=== PATIENT | female | born 1940 | race Caucasian/White ===

== ENCOUNTER 2019-01-11 13:39 | Inpatient (IN) | payer MEDICARE ==
[2019-01-11] MEDS ORDERED: Phytonadione 10 MG/ML AMP ONE (14:15)
[2019-01-11 14:29] LABS: #Lymphocytes 2.5 thou/uL (1.20-3.40); #Monocytes 0.7 thou/uL (0.11-0.59); #Neutrophils 9.5 thou/uL (1.40-6.50); %Basophils 0.3 % (0.0-1.0); %Eosinophils 0.3 % (0.0-10.0); %Lymphocytes 19.4 % (21.0-51.0); %Monocytes 5.8 % (0.0-10.0); %Neutrophils 74.3 % (42.0-75.0); Hemoglobin 11.4 g/dL (12.0-16.0); Mean Corpuscular HGB CONC 34.3 g/dL (32.0-36.0); Mean Corpuscular Hemoglobin 30.9 pg (27.0-31.0); Mean Corpuscular Volume 90.3 fL (78.0-98.0); Platelet Count 260 thou/uL (130-400); RBC Distribution Width 12.1 % (11.5-14.5); Red Blood Cell (RBC) Count 3.68 mill/uL (4.20-5.40); White Blood Cell (WBC) Count 12.8 thou/uL (4.8-10.8)
[2019-01-11] MEDS ORDERED: Diltiazem HCl 125 MG, Admixture Fee 1 EACH in Sodium Chloride 0.9% 100 ML IVPB SCH (14:30)
[2019-01-11 14:42] LABS: ALT (SGPT) 18 U/L (8-55); AST (SGOT) 20 U/L (5-34); Albumin 3.5 g/dL (3.4-4.8); Alkaline Phosphatase 84 U/L (40-110); Anion Gap 15 mmol/L (10-20); BUN (Urea Nitrogen) 8 mg/dL (9.8-20.1); Bilirubin, Total 0.5 mg/dL (0.2-1.2); Calc. Creatinine Clearance 0 mL/min (70-130); Calcium 8.4 mg/dL (7.8-10.44); Carbon Dioxide 22 mmol/L (23-31); Chloride 107 mmol/L (98-107); Estimated GFR-MDRD 78; Globulin 3.2 g/dL (2.4-3.5); Glucose 112 mg/dL (83-110); Potassium 3.2 mmol/L (3.5-5.1); Protein, Total 6.7 g/dL (6.0-8.3); Sodium 141 mmol/L (136-145)
[2019-01-11 15:06] LABS: PTT 169.6 SEC (22.9-36.1); Prothrombin Time Greater than 150.0 SEC (12.0-14.7)
[2019-01-11] MEDS ORDERED: Phytonadione 10 MG/ML AMP PO SCH (15:15)
[2019-01-11] MEDS ORDERED: Acetaminophen 325 MG TAB ONE (17:53)
[2019-01-11] MEDS ORDERED: Dextrose 50% Abboject 50 ML SYRINGE SLOW IVP PRN (19:53)
[2019-01-11] MEDS ORDERED: HumaLOG 300 UNITS/3 ML VIAL SC PRN ×2 (19:53)
[2019-01-11] MEDS ORDERED: hydrALAZINE 20 MG/ML VIAL SLOW IVP PRN (19:53)
[2019-01-11] MEDS ORDERED: Dextrose 5% in Water 1,000 ML IV PRN (19:53)
[2019-01-11] MEDS ORDERED: Ondansetron PF 4 MG/2 ML Vial IVP PRN (19:54)
[2019-01-11] MEDS ORDERED: Ondansetron ODT 4 MG TAB SL PRN (19:54)
[2019-01-11] MEDS ORDERED: Acetaminophen 325 MG TAB PO PRN (19:54)
[2019-01-11 20:12] VITALS: BMI 22.6
--- NOTE | 2019-01-11 21:57 | HP ---
PRIMARY CARE PHYSICIAN: Dr. Carlson. CHIEF COMPLAINT: "My left arm is swollen." HISTORY OF PRESENT ILLNESS: Ms. Buenrostro is a very pleasant 78-year-old female, who has a history of atrial fibrillation, diabetes, and hypertension. She says that about 3 days ago on Monday night, she noted some swelling in her left arm. She says it was also a bit painful as well. She says she denies hitting it against anything that she remembers and denies having any type of fall. The swelling got progressively worse and then on Monday, she made an appointment to see her primary care physician. He was out, but she saw another doctor in the office, who went through and did some lab work and found that her INR was extremely high. It was too high to detect, for this reason she sent her to the emergency room in [place]. There, they noticed that her PT was greater than 150. The INR was not able to be calculated and she was sent to our facility for evaluation. When she was here, further evaluation noted that her she was in atrial fibrillation with a heart rate of about 120 and she has also been placed on a Cardizem drip. Her daughter who is at the bedside says in the last few days she has had some type of viral illness where she had some diarrhea and very poor appetite. The patient herself denies taking any [id number] medications other than Imodium and a Tylenol. She does admit that she is supposed to go to the Coumadin to get her INR checked every month, but it has been about 6 weeks since she has had it checked. She does have a history of known atrial fibrillation, but she has not seen a transaction coordinator recently. She denies any chest pain or shortness of breath. No PND. No orthopnea. No feeling dizzy or are lightheaded. REVIEW OF SYSTEMS: CONSTITUTIONAL: No fevers or chills. No night sweats. No weight loss. HEENT: She denies any headaches. No dizziness, no visual changes. No sore throat. No rhinorrhea. NECK: No neck pain, no adenopathy. PULMONARY: No hemoptysis. No cough. No wheezing. CARDIOVASCULAR: As in history of present illness. GASTROINTESTINAL: No abdominal pain. No nausea. No vomiting. No change in bowels. GENITOURINARY: No urinary, frequency or hematuria. No hesitancy. MUSCULOSKELETAL: She noticed the swelling in the left upper extremity as well as some pain in the left forearm as well. No other complaints. SKIN AND INTEGUMENT: No skin changes. No rash. PSYCHIATRIC: No symptoms of anxiety or depression. NEUROLOGIC: No focal weakness or seizures. PAST MEDICAL HISTORY: Significant for chronic atrial fibrillation, diabetes mellitus type 2, hyperlipidemia, and hypertension. PAST SURGICAL HISTORY: Negative. ALLERGIES: SHE IS LACTOSE INTOLERANT. SOCIAL HISTORY: She is . She is a nonsmoker and nondrinker. She lives independently at home. She does not need any type of cane or a walker to get around. FAMILY HISTORY: Negative. CURRENT MEDICATIONS: Include: 1. Lipitor 40 mg, she takes two tablets at bedtime. 2. Metoprolol 100 mg twice daily. 3. Metformin 50 mg twice daily. 4. Coumadin 4 mg daily. 5. Losartan 50 mg daily. PHYSICAL EXAMINATION: GENERAL: She is alert and oriented. She appears to be in no acute distress. She is well developed and well nourished. VITAL SIGNS: Initially 164/135, heart rate 107, respiratory rate of 19, temperature is 97.9, and O2 saturation is 97% on room air. HEENT: Pupils are equal, round, and reactive. Extraocular muscles are intact. Her sclerae anicteric. Throat, there is no erythema, no exudates. NECK: No adenopathy, no bruits. LUNGS: Clear to auscultation. There is no wheezing, no rales, no rhonchi. CARDIOVASCULAR: She has a normal S1 and S2. There is no S3 or S4. However, her rate is irregular. ABDOMEN: Obese. It is mildly distended. Positive for bowel sounds. There is no rebound, no guarding. No organomegaly. EXTREMITIES: There is no clubbing, cyanosis, no edema except for the left upper extremity where she has tense edema in the forearm up to about the level of the elbow or olecranon. There is also some splotchy bruising and she does have palpable radial as well as ulnar pulses and she has normal sensation. She did have some difficulty with trying to form a fist with that hand. NEUROLOGIC: The exam is nonfocal. SKIN AND INTEGUMENT: She does have the bruising in the left upper extremity and some splotchy areas on both lower extremities, but otherwise negative. LABORATORY DATA: Lab and imaging, on her CBC, the white blood cell count is 12.8, hemoglobin 11.4, hematocrit is 33.2, and platelet count is 260. PT is 150. Sodium 140, potassium 3.2, chloride is 107, CO2 is 22, BUN of 8, creatinine is 0.72, glucose is 112. Troponin is less than 0.010. ASSESSMENT: Ms. Buenrostro is a pleasant 78-year-old female, who presented to the emergency room with left upper extremity swelling. She was found to have a supratherapeutic INR. She has been given 5 mg of vitamin K at [place] and then another 5 mg here. She will be admitted for severe coagulopathy as well as atrial fibrillation with rapid ventricular response. 1. With the coagulopathy, she has been given a total of 10 mg of vitamin K. We will repeat her INR in a.m. and closely monitor the left upper extremity for signs of potential compartment syndrome. However, at this point, she has intact sensation as well as intact circulation in that area. We will use some cool compresses to the area. 2. Atrial fibrillation with rapid ventricular response. Continue the IV Cardizem drip and since she has not seen a transaction coordinator recently, we will consult Cardiology and also get an echocardiogram as there is none visible in our electronic system. 3. Diabetes mellitus. We will continue her home medications as well as a sliding scale and hypertension. Again, continue home medications and offer medications as needed for elevated pressure. Job ID: [id number]
[2019-01-12 05:51] LABS: #Lymphocytes 2.5 thou/uL (1.20-3.40); #Monocytes 0.9 thou/uL (0.11-0.59); #Neutrophils 9.8 thou/uL (1.40-6.50); %Basophils 0.3 % (0.0-1.0); %Eosinophils 0.2 % (0.0-10.0); %Monocytes 6.8 % (0.0-10.0); %Neutrophils 73.6 % (42.0-75.0); Hemoglobin 10.6 g/dL (12.0-16.0); Mean Corpuscular Hemoglobin 30.9 pg (27.0-31.0); Mean Corpuscular Volume 90.9 fL (78.0-98.0); Mean Platelet Volume 8.4 fL (7.4-10.4); Platelet Count 251 thou/uL (130-400); RBC Distribution Width 12.3 % (11.5-14.5); Red Blood Cell (RBC) Count 3.42 mill/uL (4.20-5.40); White Blood Cell (WBC) Count 13.3 thou/uL (4.8-10.8)
[2019-01-12] MEDS: Acetaminophen 325 MG TAB PO PRN ×2 (05:51→12:58)
[2019-01-12 05:55] LABS: INR-International Normal Ratio 1.9
[2019-01-12 06:20] LABS: Anion Gap 14 mmol/L (10-20); BUN (Urea Nitrogen) 6 mg/dL (9.8-20.1); Calc. Creatinine Clearance 67 mL/min (70-130); Carbon Dioxide 22 mmol/L (23-31); Chloride 108 mmol/L (98-107); Estimated GFR-MDRD Greater than 90; Glucose 106 mg/dL (83-110); Sodium 141 mmol/L (136-145)
[2019-01-12 06:30] LABS: Potassium 2.8 mmol/L (3.5-5.1)
[2019-01-12] MEDS: Potassium Chloride 20 MEQ in Premix Bag 1 BAG IVPB SCH ×2 (08:44→10:05)
[2019-01-12] MEDS ORDERED: Non-Formulary Item 1 EACH (Losartan Potassium [Losartan Potassium] 50 MG) PO SCH (09:00)
[2019-01-12] MEDS: Losartan 25 MG TAB PO SCH (10:06)
[2019-01-12] MEDS: metFORMIN 500 MG TAB PO SCH ×3 (10:06→20:11)
[2019-01-12] MEDS: Metoprolol Tartrate 100 MG TAB PO SCH ×2 (10:06→20:06)
[2019-01-12] MEDS ORDERED: Phytonadione 10 MG/ML AMP PO SCH (12:00)
--- NOTE | 2019-01-12 12:02 | PDOC.HOSPP ---
- Subjective Encounter Date: 01/12/19 Encounter Time: 12:00 Subjective: Ms. Stephens was srrn today in follow-up of supratherapeutic INR and AFIB. She feels her arm is worse, mainly due to the color. She does not have any new complaints. - Objective Vital Signs & Weight: Vital Signs (12 hours) Temp Pulse Resp BP Pulse Ox 01/12/19 08:00 98.9 F 100 16 126/56 L 96 01/12/19 03:58 99.4 F 60 15 121/58 L 94 L Weight Weight 123 lb 6.4 oz I&O: 01/11/19 01/12/19 01/13/19 06:59 06:59 06:59 Intake Total 160 Balance 160 Result Diagrams: 01/12/19 05:03 01/12/19 05:03 Additional Labs: Accuchecks 01/12/19 01/12/19 01/11/19 10:41 05:42 20:15 POC Glucose 86 95 128 H Hospitalist ROS - Medication Medications: Active Medications Generic Name Dose Route Start Last Admin Trade Name Freq PRN Reason Stop Dose Admin Acetaminophen 650 mg 01/11/19 19:53 01/12/19 05:51 Tylenol PO 650 mg Q4H PRN Administration Headache/Fever/Mild Pain (1-3) Losartan Potassium 50 mg 01/12/19 09:00 01/12/19 10:06 Cozaar PO 50 mg DAILY TRANG Administration Metformin HCl 500 mg 01/12/19 09:00 01/12/19 10:06 Glucophage PO 500 mg BID TRANG Administration Metoprolol Tartrate 100 mg 01/12/19 09:00 01/12/19 10:06 Lopressor PO 100 mg BID TRANG Administration Sodium Chloride 10 ml 01/12/19 09:00 01/12/19 08:39 Flush - Normal Saline IVF Not Given Q12HR TRANG - Exam Eye: PERRL, anicteric sclera Heart: RRR, no murmur, no gallops, no rubs, normal peripheral pulses Respiratory: CTAB, no wheezes, no rales, no ronchi, normal chest expansion Gastrointestinal: soft, non-tender, non-distended, normal bowel sounds, no palpable masses, no hepatomegaly Extremities: 2+ LE edema (+ swelling of the left upper extremity, radial pulse is palpable but a it less intense than yesterday, capillary refill is good. Much more dens purplish appearance of the bruise, extending) Hosp A/P (1) Warfarin-induced coagulopathy Code(s): D68.32 - HEMORRHAGIC DISORD D/T EXTRINSIC CIRCULATING ANTICOAGULANTS; T45.515A - ADVERSE EFFECT OF ANTICOAGULANTS, INITIAL ENCOUNTER Status: Acute (2) Atrial fibrillation Code(s): I48.91 - UNSPECIFIED ATRIAL FIBRILLATION Status: Chronic (3) Diabetes mellitus type 2 in nonobese Code(s): E11.9 - TYPE 2 DIABETES MELLITUS WITHOUT COMPLICATIONS Status: Chronic (4) Hypertension Code(s): I10 - ESSENTIAL (PRIMARY) HYPERTENSION Status: Chronic - Plan * Couagulopathy due to coumadin- INR is 1.9 today- will give another small dose of Vitamin K * Hematoma of the left upper extremity- bruising is expected- will continue cool compresses, and elevation * AFIB- her heart rate is better- will try discontinuing the Cardizem drip soon * Await Echo, and Cardiology consult * HTN- blood pressure is stable * Hypokalemia- replace Potassium, and will check a mganesium level * DM-blood glucose is stable
[2019-01-12] MEDS: Diltiazem 125 MG in Sodium Chloride 0.9% 100 ML IVPB SCH (12:59)
--- NOTE | 2019-01-12 16:51 | CON ---
DATE OF CONSULTATION: 01/12/2019 REASON FOR CONSULTATION: Atrial fibrillation with RVR. HISTORY OF PRESENT ILLNESS: Ms. Buenrostro is a very pleasant 78-year-old white female who comes to the hospital for left arm pain. She has chronic atrial fibrillation and has been on Coumadin for some time now. Dr. Carlson, her primary care doctor, has kept up with her INR is a very well. Her last INR check was just a little bit over normal, and this was 6 weeks ago. She had been told to come back 2 weeks after to recheck it, and she was about 3 to 4 weeks late. She presents today after noticing left arm pain and swelling. She was found to have a supratherapeutic INR in the level where it is undetectable, it is so high, so she was transferred over here. She has a big hematoma on her arm. She denies any chest pain, tightness, or pressure, otherwise. PAST MEDICAL HISTORY: 1. Chronic atrial fibrillation. 2. Type 2 diabetes. 3. Hyperlipidemia. 4. Hypertension. PAST SURGICAL HISTORY: None. OUTPATIENT MEDICATIONS: 1. Lipitor 40 mg 2 tablets every evening, so it is 80 mg a day. 2. Metoprolol 100 mg twice a day. 3. Metformin 50 mg twice a day. 4. Coumadin 4 mg a day. 5. Losartan 50 mg a day. ALLERGIES: LACTOSE INTOLERANT, BUT NO DRUG ALLERGIES. SOCIAL HISTORY: No alcohol, tobacco, or drugs. FAMILY HISTORY: No early coronary artery disease. REVIEW OF SYSTEMS: A 12-point review of systems was done and was all negative unless stated in the History of Present Illness. PHYSICAL EXAMINATION: VITAL SIGNS: Temperature 98.9, pulse 100, respiratory rate 16, sat is 96% on room air, and blood pressure 126/56. GENERAL: Awake, alert, and oriented x3. No distress. HEENT: Normocephalic, atraumatic. NECK: Supple. LUNGS: Clear. CARDIOVASCULAR: Irregularly irregular heart rate in the 90s to 120s. ABDOMEN: Soft. Positive bowel sounds. EXTREMITIES: Trace edema. There is a large hematoma on her left arm. The left arm is swollen. Pulses are diminished, but present, with good capillary refill distally. No numbness. LABORATORY DATA: Laboratory work was reviewed. CBC with a white count of 12, up to 13; hemoglobin 11, down to 10.6; and platelet count is normal. Coags, INR initially was above ST limit. Last check was this morning at 5 a.m., and it was back down to 1.9. Chemistry showed a sodium 141, potassium was 2.8, chloride 108, carbon dioxide of 22, anion gap of 14, BUN of 6, creatinine 0.59 with GFR greater than of 90. Troponin is negative x2. Glucose was 128. Magnesium was 1.2. EKG was reviewed, atrial fibrillation with RVR. ASSESSMENT: 1. Chronic atrial fibrillation and rapid ventricular response. 2. Supratherapeutic INR. 3. Large left arm hematoma, concern for developing compartment syndrome. PLAN: 1. Currently, no evidence of compartment syndrome. She is bruised and has some pain, but is not terrible. She has pulses and good capillary refill distally. No numbness or tingling. She can move her hand. Continue to monitor this per Primary Team. 2. Her atrial fibrillation is chronic and likely her rapid ventricular response is related to her low potassium as well as low magnesium and anemia that is developing from this hematoma as well as the pain. Continue diltiazem drip. I am sure this will slowly get better and slowed down. 3. I spoke with Ms. Buenrostro about possibly starting Eliquis, Xarelto, Pradaxa, Savaysa, she is not, she has tried these in the past and they are extremely expensive for her and she cannot afford them, so this is not going to be an issue. Other possibilities would be Watchman device versus LARIAT device. We will see how she does with this situation first. 4. We will get an echocardiogram. Thank you for letting us to participate in the care of your patient. We will follow. Job ID: [id number]
[2019-01-12] MEDS: Atorvastatin Calcium 40 MG TAB PO SCH (20:06)
[2019-01-12] MEDS ORDERED: Non-Formulary Item 1 EACH (Atorvastatin Calcium [Lipitor] 80 MG) PO SCH (21:00)
[2019-01-13] MEDS ORDERED: Magnesium 2 GM/50 ML 2 GM in Premix Bag 1 BAG IVPB SCH (02:15)
[2019-01-13 05:43] LABS: #Basophils 0.1 thou/uL (0.0-0.2); #Eosinphils 0.1 thou/uL (0.0-0.7); #Lymphocytes 3.1 thou/uL (1.20-3.40); #Monocytes 0.9 thou/uL (0.11-0.59); #Neutrophils 7.2 thou/uL (1.40-6.50); %Basophils 0.5 % (0.0-1.0); %Eosinophils 0.6 % (0.0-10.0); %Lymphocytes 27.4 % (21.0-51.0); %Neutrophils 63.4 % (42.0-75.0); INR-International Normal Ratio 1.4; Mean Corpuscular HGB CONC 34.1 g/dL (32.0-36.0); PTT 41.4 SEC (22.9-36.1); Platelet Count 269 thou/uL (130-400); Prothrombin Time 17.4 SEC (12.0-14.7); RBC Distribution Width 12.3 % (11.5-14.5); Red Blood Cell (RBC) Count 3.22 mill/uL (4.20-5.40); White Blood Cell (WBC) Count 11.3 thou/uL (4.8-10.8)
[2019-01-13 05:53] LABS: Anion Gap 12 mmol/L (10-20); BUN (Urea Nitrogen) 7 mg/dL (9.8-20.1); Calc. Creatinine Clearance 58 mL/min (70-130); Calcium 8.2 mg/dL (7.8-10.44); Carbon Dioxide 23 mmol/L (23-31); Chloride 105 mmol/L (98-107); Estimated GFR-MDRD 83; Glucose 131 mg/dL (83-110); Sodium 137 mmol/L (136-145)
[2019-01-13] MEDS: cefTRIAXone\\ROCEPHIN 1 GM in Sodium Chloride 0.9% 100 ML IVPB SCH (05:53)
[2019-01-13 05:56] LABS: Anion Gap 12 mmol/L (10-20); BUN (Urea Nitrogen) 7 mg/dL (9.8-20.1); Calc. Creatinine Clearance 58 mL/min (70-130); Calcium 8.3 mg/dL (7.8-10.44); Carbon Dioxide 24 mmol/L (23-31); Chloride 105 mmol/L (98-107); Estimated GFR-MDRD 83; Glucose 131 mg/dL (83-110); Magnesium 1.9 mg/dL (1.6-2.6); Potassium 3.1 mmol/L (3.5-5.1); Sodium 138 mmol/L (136-145)
[2019-01-13] MEDS ORDERED: Potassium Chloride 20 MEQ TAB PO SCH ×2 (08:15→12:30)
[2019-01-13] MEDS: Metoprolol Tartrate 100 MG TAB PO SCH ×2 (09:53→20:20)
[2019-01-13] MEDS: Losartan 25 MG TAB PO SCH (09:54)
[2019-01-13] MEDS: metFORMIN 500 MG TAB PO SCH ×2 (10:03→20:20)
--- NOTE | 2019-01-13 11:26 | PDOC.HOSPP ---
- Subjective Encounter Date: 01/13/19 Encounter Time: 11:24 Subjective: Doing well. Arm feels ok. No new complaints. - Objective Vital Signs & Weight: Vital Signs (12 hours) Temp Pulse Resp BP Pulse Ox 01/13/19 07:54 96 01/13/19 04:00 98.2 F 94 14 141/67 H 92 L 01/13/19 03:33 95 Weight Admit Weight 123 lb 6.4 oz Weight 123 lb 6.4 oz I&O: 01/12/19 01/13/19 01/14/19 06:59 06:59 06:59 Intake Total 160 730 Balance 160 730 Result Diagrams: 01/13/19 05:15 01/13/19 05:15 Additional Labs: Accuchecks 01/13/19 01/12/19 01/12/19 10:53 20:00 17:31 POC Glucose 148 H 131 H 127 H Hospitalist ROS - Medication Medications: Active Medications Generic Name Dose Route Start Last Admin Trade Name Freq PRN Reason Stop Dose Admin Acetaminophen 650 mg 01/11/19 19:53 01/12/19 12:58 Tylenol PO 650 mg Q4H PRN Administration Headache/Fever/Mild Pain (1-3) Atorvastatin Calcium 80 mg 01/12/19 21:00 01/12/19 20:06 Lipitor PO 80 mg HS TRANG Administration Diltiazem HCl 125 mg/ Sodium 125 mls @ 5 mls/hr 01/11/19 19:53 01/12/19 12:59 Chloride IVPB 125 mls INF TRANG Administration Protocol 5 MG/HR Ceftriaxone Sodium 1 gm/ 100 mls @ 200 mls/hr 01/13/19 04:00 01/13/19 05:53 Sodium Chloride IVPB 100 mls 0400 TRANG Administration Losartan Potassium 50 mg 01/12/19 09:00 01/13/19 09:54 Cozaar PO 50 mg DAILY TRANG Administration Metformin HCl 500 mg 01/12/19 09:00 01/13/19 10:03 Glucophage PO 500 mg BID TRANG Administration Metoprolol Tartrate 100 mg 01/12/19 09:00 01/13/19 09:53 Lopressor PO 100 mg BID TRANG Administration Sodium Chloride 10 ml 01/12/19 09:00 01/13/19 10:53 Flush - Normal Saline IVF Not Given Q12HR TRANG - Exam General Appearance: NAD, awake alert Heart: no murmur, irregular Respiratory: CTAB, no wheezes, no rales, no ronchi, normal chest expansion, no tachypnea, normal percussion Gastrointestinal: soft, non-tender, non-distended, normal bowel sounds, no palpable masses, no hepatomegaly, no splenomegaly, no bruit Extremities - other findings: LUE with large area of ecchymosis extending down much of the arm. Skin: normal turgor Musculoskeletal: normal tone Psychiatric: normal affect, normal behavior, A&O x 3 Hosp A/P (1) Hematoma of arm Status: Acute (2) Hypomagnesemia Code(s): E83.42 - HYPOMAGNESEMIA Status: Acute (3) Hypokalemia Code(s): E87.6 - HYPOKALEMIA Status: Acute (4) Warfarin-induced coagulopathy Code(s): D68.32 - HEMORRHAGIC DISORD D/T EXTRINSIC CIRCULATING ANTICOAGULANTS; T45.515A - ADVERSE EFFECT OF ANTICOAGULANTS, INITIAL ENCOUNTER Status: Acute (5) Atrial fibrillation Code(s): I48.91 - UNSPECIFIED ATRIAL FIBRILLATION Status: Chronic (6) UTI (urinary tract infection) Status: Acute (7) Diabetes mellitus type 2 in nonobese Code(s): E11.9 - TYPE 2 DIABETES MELLITUS WITHOUT COMPLICATIONS Status: Chronic (8) Hypertension Code(s): I10 - ESSENTIAL (PRIMARY) HYPERTENSION Status: Chronic - Plan Hematoma appears stable. Hemoglobin stable. INR down to 1.4. I am comfortable with the subtherapeutic INR for now. Need to allow the bleeding the left upper extremity to stablize. She will need to get back to a therapeutic level soon. Afib is now rate controlled. Dr. Hough following. Can likely transition back to po meds today. Still on Cardizem gtt for now. Mag is better. Continuing to replete potassium. Started on Rocephin for UTI last night. Results are from the ED visit and not visible under this admission's labs. Results are positive, but not overwhelmingly so.
[2019-01-13] MEDS: Diltiazem 125 MG in Sodium Chloride 0.9% 100 ML IVPB SCH (12:49)
--- NOTE | 2019-01-13 19:35 | PDOC.CPN ---
- Subjective Date: 01/13/19 Time: 19:33 Interval history: She is doing well. Her arm is doing much better, less tense and less swollen. - Review of Systems General: denies: fever/chills, weight/appetite/sleep changes, night sweats, fatigue Respiratory: denies: cough, congestion, shortness of breath, exercise intolerance Cardiovascular: denies: chest pain, palpitation, edema, paroxysmal nocturnal dyspnea, orthopnea Gastrointestinal: denies: nausea, vomiting, diarrhea, constipation, abd pain, GI bleeding Musculoskeletal: reports: pain. denies: tenderness, stiffness, swelling, arthritis/arthralgias Neurological: denies: numbness, syncope, seizure, weakness - Objective Allergies/Adverse Reactions: Allergies Allergy/AdvReac Type Severity Reaction Status Date / Time Egg Derived Allergy Verified 01/11/19 20:04 Visit Medications: Current Medications Acetaminophen (Tylenol) 650 mg PO Q4H PRN PRN Reason: Headache/Fever/Mild Pain (1-3) Last Admin: 01/12/19 12:58 Dose: 650 mg Atorvastatin Calcium (Lipitor) 80 mg PO [facility] Last Admin: 01/12/19 20:06 Dose: 80 mg Dextrose/Water (Dextrose 50%) 25 gm SLOW IVP PRN PRN PRN Reason: Hypoglycemia Glucagon (Glucagon) 1 mg IM PRN PRN PRN Reason: Hypoglycemia Hydralazine HCl (Apresoline) 10 mg SLOW IVP Q4H PRN PRN Reason: SBP > 180 and HR < 70 Dextrose/Water (D5w) 1,000 mls @ 0 mls/hr IV .Q0M PRN PRN Reason: Hypoglycemia Ceftriaxone Sodium 1 gm/ (Sodium Chloride) 100 mls @ 200 mls/hr IVPB 0400 [facility] Last Admin: 01/13/19 05:53 Dose: 100 mls Insulin Human Lispro (Humalog) 0 units SC .MODERATE SLIDING SC PRN PRN Reason: Moderate Correctional Scale Insulin Human Lispro (Humalog) 0 units SC .BEDTIME SLIDING SC PRN PRN Reason: Bedtime Correctional Scale Losartan Potassium (Cozaar) 50 mg PO DAILY [facility] Last Admin: 01/13/19 09:54 Dose: 50 mg Metformin HCl (Glucophage) 500 mg PO BID [facility] Last Admin: 01/13/19 10:03 Dose: 500 mg Metoprolol Tartrate (Lopressor) 100 mg PO BID [facility] Last Admin: 01/13/19 09:53 Dose: 100 mg Sodium Chloride (Flush - Normal Saline) 10 ml IVF Q12HR [facility] Last Admin: 01/13/19 10:53 Dose: Not Given Sodium Chloride (Flush - Normal Saline) 10 ml IVF PRN PRN PRN Reason: Saline Flush Vital Signs & Weight: Vital Signs Temp Pulse Resp BP Pulse Ox 01/13/19 16:00 98.6 F 78 17 132/61 95 01/13/19 12:00 98.1 F 85 16 122/59 L 95 01/13/19 08:00 97.2 F L 88 18 139/63 94 L 01/13/19 07:54 96 Admit Weight 123 lb 6.4 oz Weight 123 lb 6.4 oz - Physical Exam General: alert & oriented x3 HEENT: mucus membranes moist Neck: supple neck Cardiac: irregularly regular Lungs: clear to auscultation Neuro: grossly intact Abdomen: active bowel sounds Skin: clear Musculoskeletal: normal range of motion (2+ radial pulse bilat arms, good cap ref.) - Labs Result Diagrams: 01/13/19 05:15 01/13/19 05:15 Troponin/CKMB Troponin I Less than 0.010 ng/mL (< 0.028) 01/11/19 14:16 - Telemetry Supraventricular conduction: atrial fibrillation - Assessment/Plan Assessment/Plan: 1. Chronic afib 2. Supratherapeutic INR 3. Spontaneous bkeeding into left arm, large hematoma. 4. T2DM 5. HTN PLAN: - Continue to hold coumadin. Likely restart full anticoagulation with Eliquis in 5 days. - Will provide samples and try to enroll in Eliquis prescription program. - May be a candidate for Watchman or Lariat, will discuss with EP. - Will switch her diltiazem drip to PO. - Home any time from cardiac perspective. - Follow up in the office in 1 month.
[2019-01-13] MEDS: Atorvastatin Calcium 40 MG TAB PO SCH (20:20)
[2019-01-13] MEDS: Diltiazem HCl SR 60 mg Capsule PO SCH (20:20)
[2019-01-13] MEDS: Acetaminophen 325 MG TAB PO PRN (20:21)
[2019-01-14 05:35] LABS: INR-International Normal Ratio 1.3; Prothrombin Time 15.9 SEC (12.0-14.7)
[2019-01-14] MEDS: cefTRIAXone\\ROCEPHIN 1 GM in Sodium Chloride 0.9% 100 ML IVPB SCH (05:53)
[2019-01-14] MEDS: metFORMIN 500 MG TAB PO SCH (10:16)
[2019-01-14] MEDS: Metoprolol Tartrate 100 MG TAB PO SCH ×2 (10:16→20:32)
[2019-01-14] MEDS: Losartan 25 MG TAB PO SCH (10:16)
[2019-01-14] MEDS: Diltiazem HCl SR 60 mg Capsule PO SCH ×2 (10:16→20:31)
[2019-01-14 14:08] LABS: Anion Gap 12 mmol/L (10-20); BUN (Urea Nitrogen) 7 mg/dL (9.8-20.1); Calc. Creatinine Clearance 58 mL/min (70-130); Calcium 8.5 mg/dL (7.8-10.44); Carbon Dioxide 27 mmol/L (23-31); Chloride 105 mmol/L (98-107); Estimated GFR-MDRD 85; Glucose 97 mg/dL (83-110); Magnesium 1.6 mg/dL (1.6-2.6); Potassium 3.6 mmol/L (3.5-5.1); Sodium 140 mmol/L (136-145)
[2019-01-14] MEDS ORDERED: Potassium Chloride 20 MEQ TAB PO SCH (15:45)
--- NOTE | 2019-01-14 16:10 | PDOC.CPN ---
- Subjective Date: 01/14/19 Time: 16:06 Interval history: Doing well. Her left arm swelling is improving every day. - Review of Systems General: denies: fever/chills, weight/appetite/sleep changes, night sweats, fatigue Respiratory: denies: cough, congestion, shortness of breath, exercise intolerance Cardiovascular: denies: chest pain, palpitation, edema, paroxysmal nocturnal dyspnea, orthopnea Gastrointestinal: denies: nausea, vomiting, diarrhea, constipation, abd pain, GI bleeding Musculoskeletal: denies: pain, tenderness, stiffness, swelling, arthritis/ arthralgias Neurological: denies: numbness, syncope, seizure, weakness - Objective Allergies/Adverse Reactions: Allergies Allergy/AdvReac Type Severity Reaction Status Date / Time Egg Derived Allergy Verified 01/11/19 20:04 Visit Medications: Current Medications Acetaminophen (Tylenol) 650 mg PO Q4H PRN PRN Reason: Headache/Fever/Mild Pain (1-3) Last Admin: 01/13/19 20:21 Dose: 650 mg Atorvastatin Calcium (Lipitor) 80 mg PO [facility] Last Admin: 01/13/19 20:20 Dose: 80 mg Dextrose/Water (Dextrose 50%) 25 gm SLOW IVP PRN PRN PRN Reason: Hypoglycemia Diltiazem HCl (Cardizem Sr) 60 mg PO BID [facility] Last Admin: 01/14/19 10:16 Dose: 60 mg Glipizide (Glucotrol) 5 mg PO BID[facility] Glucagon (Glucagon) 1 mg IM PRN PRN PRN Reason: Hypoglycemia Hydralazine HCl (Apresoline) 10 mg SLOW IVP Q4H PRN PRN Reason: SBP > 180 and HR < 70 Dextrose/Water (D5w) 1,000 mls @ 0 mls/hr IV .Q0M PRN PRN Reason: Hypoglycemia Ceftriaxone Sodium 1 gm/ (Sodium Chloride) 100 mls @ 200 mls/hr IVPB 0400 [facility] Last Admin: 01/14/19 05:53 Dose: 100 mls Insulin Human Lispro (Humalog) 0 units SC .MODERATE SLIDING SC PRN PRN Reason: Moderate Correctional Scale Last Admin: 01/14/19 11:39 Dose: 2 unit Insulin Human Lispro (Humalog) 0 units SC .BEDTIME SLIDING SC PRN PRN Reason: Bedtime Correctional Scale Losartan Potassium (Cozaar) 50 mg PO DAILY [facility] Last Admin: 01/14/19 10:16 Dose: 50 mg Metoprolol Tartrate (Lopressor) 100 mg PO BID [facility] Last Admin: 01/14/19 10:16 Dose: 100 mg Potassium Chloride (K-Dur) 40 meq PO NOW [facility] Stop: 01/14/19 17:45 Sodium Chloride (Flush - Normal Saline) 10 ml IVF Q12HR [facility] Last Admin: 01/14/19 10:17 Dose: 10 ml Sodium Chloride (Flush - Normal Saline) 10 ml IVF PRN PRN PRN Reason: Saline Flush Last Admin: 01/14/19 05:53 Dose: 10 ml Vital Signs & Weight: Vital Signs Temp Pulse Resp BP Pulse Ox 01/14/19 11:55 98.5 F 72 18 140/86 97 01/14/19 07:55 98.1 F 70 16 129/62 97 01/14/19 07:29 97 Admit Weight 123 lb 6.4 oz Weight 120 lb 3.2 oz - Physical Exam General: alert & oriented x3, no apparent distress HEENT: mucus membranes moist Neck: supple neck Cardiac: irregularly regular Lungs: clear to auscultation Neuro: grossly intact Abdomen: active bowel sounds Skin: clear Musculoskeletal: normal range of motion - Labs Result Diagrams: 01/13/19 05:15 01/14/19 13:21 Troponin/CKMB Troponin I Less than 0.010 ng/mL (< 0.028) 01/11/19 14:16 - Telemetry Supraventricular conduction: atrial fibrillation - Assessment/Plan Assessment/Plan: 1. Chronic afib 2. Supratherapeutic INR, improved. 3. Spontaneous bleeding into left arm, large hematoma. 4. T2DM 5. HTN PLAN: - Continue to hold coumadin. Likely restart full anticoagulation with Eliquis Monday of next week. - Will provide samples and try to enroll in Eliquis prescription program. - May be a candidate for Watchman or Lariat if she fails - Home any time from cardiac perspective. - Follow up in the office in 1 month. - Will sign off. Please call with any questions.
[2019-01-14] MEDS: glipiZIDE 5 MG TAB PO SCH (16:55)
--- NOTE | 2019-01-14 19:22 | DIS ---
DATE OF ADMISSION: 01/11/2019 DATE OF DISCHARGE: 01/14/2019 CONSULTANTS: Dr. Ramos Hough, Cardiology Service. FINAL DIAGNOSES AT THE TIME OF DISCHARGE: 1. Hematoma of the left arm. 2. Hypomagnesemia. 3. Hypokalemia. 4. Warfarin-induced coagulopathy. 5. Atrial fibrillation. 6. Urinary tract infection. 7. Diabetes mellitus, type 2. 8. Hypertension. HOSPITAL COURSE: The patient is an 78-year-old female with history of atrial fibrillation, diabetes mellitus, hypertension, who noticed some swelling in her left arm 3 days ago prior to this hospitalization. There was some pain involved in this left arm too. She denied any trauma or fall. The swelling got progressively worse and she saw the doctor, who went through and did some lab work and found that INR was extremely high. It was too high to detect. For this reason, she was sent to the emergency room in [place]. The PT was greater than 150 and INR was not able to be calculated. She was sent to [facility] in [place] for further evaluation. Her atrial fibrillation is chronic, but her heart rate was up to 120s and she was placed on Cardizem drip. Her emergency room evaluation revealed white count of 12.8, hemoglobin of 11.4, hematocrit 33.2, platelet count 260,000. Potassium was low at 3.2, chloride 107, sodium 140, CO2 of 22, BUN 8, creatinine 0.72, glucose 112. Troponin I less than 0.010. She was given 5 mg of vitamin K in [place] ER, then another 5 mg in our emergency room. She got admitted for severe coagulopathy as well as atrial fibrillation with RVR. She was continued on IV Cardizem drip and Cardiology consultation was requested. Her left upper extremity showed 2+ edema, the color was purplish, bruised, and it was extending. Her INR went down to 1.9. She was on continued cool compresses and elevation. Her atrial fibrillation was under control on Cardizem drip. The patient was seen by youth care worker, Dr. Hough, who recommended to switch her to oral Cardizem 60 mg once a day once her heart rate was controlled. Echocardiogram showed LVEF of 60% to 65% with moderately dilated left atrium, moderately enlarged right atrium, calcified chordae tendineae, [id number] tricuspid regurgitation, right ventricular systolic pressure was estimated at 37 mmHg. The patient is doing well. Her blood pressure is 140/86, pulse is 72, temperature is 98.5, respirations 18, O2 saturation is 97% on room air. Her swelling is improved. The bruising is involving basically all left upper extremity, but it is somewhat improved. Vice President Of Compliance recommends to start her on apixaban in the next 4 days and he is going to call her and enroll her on a special program for that treatment to decrease the cost since apixaban is very expensive. Also, the patient was changed from metformin to glipizide 5 mg twice a day since she started having some GI symptoms, which most likely related to her metformin use. Her potassium was running on the lower side and it was supplemented. The patient is doing well today. She is seen and examined before she is discharged. Activities as tolerated at the time of discharge. Disposition is home. Her urine culture came back positive for presumptive Escherichia coli and she is treated with Rocephin IV piggyback. At this point, she is switched to Cipro 250 mg twice a day for 5 days. Also, she is going to have atorvastatin 80 mg q.h.s., metoprolol tartrate 100 mg twice a day, diltiazem 60 mg twice a day, Tylenol p.r.n. as needed, losartan 50 mg daily. FOLLOWUP: She is going to follow up with her primary care physician in [address] Hough is going to call her regarding apixaban starts. This is supposed to be started in the next 4 days. DISCHARGE CONDITION: She is discharged home in good condition. TIME SPENT: Time spent on this discharge is less than 30 minutes. Job ID: [id number]
[2019-01-14] MEDS: Atorvastatin Calcium 40 MG TAB PO SCH (20:32)
[2019-01-15] MEDS: cefTRIAXone\\ROCEPHIN 1 GM in Sodium Chloride 0.9% 100 ML IVPB SCH (03:25)
[2019-01-15 06:14] LABS: INR-International Normal Ratio 1.4; Prothrombin Time 16.8 SEC (12.0-14.7)
[2019-01-15] MEDS: Metoprolol Tartrate 100 MG TAB PO SCH (08:07)
[2019-01-15] MEDS: Losartan 25 MG TAB PO SCH (08:07)
[2019-01-15] MEDS: glipiZIDE 5 MG TAB PO SCH (08:07)
[2019-01-15] MEDS: Diltiazem HCl SR 60 mg Capsule PO SCH (08:08)
[2019-01-15 12:14] VITALS: BP 151/67; TEMP 97.5
--- NOTE | 2019-01-16 09:08 | DIS ---
DATE OF ADMISSION: 01/11/2019 DATE OF DISCHARGE: 01/15/2019 ADDENDUM: HOSPITAL COURSE: The patient's discharge was held for approximately 24 hours due to supratherapeutic INR and coordination of care and prescriptions for home. The patient remained clinically stable during the hospital course, tolerating regular oral intake and voiding appropriately. Vital signs have remained stable and the patient overall clinically stable and ready for discharge on 01/15/2019. I have examined the patient at the time of discharge and discussed followup instructions. The patient verbalized understanding and in agreement, ready for discharge on 01/15/2019. Please see dictated discharge summary on 01/14/2019, for full details including medication reconciliation and followup instructions. Job ID: [id number]
== END 2019-01-15 13:07 | disposition home or self-care (01) | DRG 813 ==
LOC: ERS 13:39 → 2NO 15:27
PROVIDERS: ADMIT Internal Medicine; ATTEND Internal Medicine
DX: D68.32 Hemorrhagic disorder due to extrinsic circulating anticoagulants (principal); N39.0 Urinary tract infection, site not specified; I48.20 Chronic atrial fibrillation, unspecified; E11.9 Type 2 diabetes mellitus without complications; I10 Essential (primary) hypertension; E78.5 Hyperlipidemia, unspecified; E87.6 Hypokalemia; E83.42 Hypomagnesemia; R22.32 Localized swelling, mass and lump, left upper limb; Z91.011 Allergy to milk products; Z79.84 Long term (current) use of oral hypoglycemic drugs; Z79.899 Other long term (current) drug therapy; B96.20 Unspecified Escherichia coli [E. coli] as the cause of diseases classified elsewhere; I07.1 Rheumatic tricuspid insufficiency; D64.9 Anemia, unspecified; M79.81 Nontraumatic hematoma of soft tissue
CPT/HCPCS: 36415; 36416; 80048; 80053; 83735; 85025; 85610; 85730; 87077; 87086; 87186; 93005; 93306; 96365; 96366; J0696; J3430; J3475; J3480; J3490

== ENCOUNTER 2021-01-06 19:14 | Inpatient (IN) | payer MEDICARE ==
[2021-01-06 19:43] LABS: #Lymphocytes 1.6 thou/uL (1.20-3.40); #Monocytes 0.4 thou/uL (0.11-0.59); #Neutrophils 2.9 thou/uL (1.40-6.50); %Basophils 0.2 % (0.0-1.0); %Lymphocytes 32.5 % (21.0-51.0); %Monocytes 7.4 % (0.0-10.0); %Neutrophils 59.8 % (42.0-75.0); Hemoglobin 12.9 g/dL (12.0-16.0); Mean Corpuscular HGB CONC 34.1 g/dL (32.0-36.0); Mean Corpuscular Hemoglobin 32.4 pg (27.0-31.0); Mean Corpuscular Volume 95.2 fL (78.0-98.0); Mean Platelet Volume 8.6 fL (7.4-10.4); Platelet Count 102 thou/uL (130-400); Red Blood Cell (RBC) Count 3.99 mill/uL (4.20-5.40); White Blood Cell (WBC) Count 4.9 thou/uL (4.8-10.8)
[2021-01-06 19:57] LABS: Platelet Morphology Comment Appears Decreased; RBC Morphology Normal
[2021-01-06 20:00] LABS: ALT (SGPT) 22 U/L (8-55); AST (SGOT) 38 U/L (5-34); Albumin 3.4 g/dL (3.4-4.8); Alkaline Phosphatase 78 U/L (40-110); Anion Gap 14 mmol/L (10-20); BUN (Urea Nitrogen) 26 mg/dL (9.8-20.1); Bilirubin, Total 0.6 mg/dL (0.2-1.2); Calc. Creatinine Clearance 0 mL/min (70-130); Calcium 7.3 mg/dL (7.8-10.44); Carbon Dioxide 21 mmol/L (23-31); Chloride 106 mmol/L (98-107); Globulin 2.6 g/dL (2.4-3.5); Glucose 102 mg/dL (83-110); Potassium 4.3 mmol/L (3.5-5.1); Sodium 137 mmol/L (136-145)
[2021-01-06 20:18] LABS: Bilirubin Negative (Negative); Blood, Urine Small (Negative); Glucose, Urine (Dipstick) Negative (Negative); Ketone, Urine Negative (Negative); Leukocyte Negative (Negative); Nitrite Negative (Negative); Protein, Urine (Dipstick) Trace mg/dL (Neg-Trace); Specific Gravity, Urine 1.025 (1.005-1.030); Urobilinogen 0.2 mg/dL (Less than 2); pH, Urine 5.5 (5.0-9.0)
[2021-01-06 20:27] LABS: Clarity Clear (Clear)
[2021-01-06 20:28] LABS: RBC/HPF 0-3 HPF (0-3)
[2021-01-06 20:46] LABS: Lipase 51 U/L (8-78); Magnesium 1.3 mg/dL (1.6-2.6)
[2021-01-06 20:53] LABS: SARS-CoV-2 NAA Rapid Test DETECTED (NotDetected)
[2021-01-06] MEDS ORDERED: cefTRIAXone\\ROCEPHIN 2 GM VIAL ONE (22:39)
[2021-01-06] MEDS ORDERED: Magnesium 2 GM/50 ML BAG (IN WATER) ONE (23:07)
[2021-01-07] MEDS ORDERED: Dextrose 5% in Water 1,000 ML IV PRN (04:36)
[2021-01-07] MEDS ORDERED: Dextrose 50% Abboject 50 ML SYRINGE SLOW IVP PRN (04:36)
[2021-01-07] MEDS: Sodium Chloride 0.9% 1,000 ML IV SCH ×2 (05:08→18:00)
[2021-01-07 07:20] LABS: #Lymphocytes 2.1 thou/uL (1.20-3.40); #Monocytes 0.5 thou/uL (0.11-0.59); #Neutrophils 2.2 thou/uL (1.40-6.50); %Eosinophils 0.2 % (0.0-10.0); %Lymphocytes 43.4 % (21.0-51.0); %Monocytes 9.9 % (0.0-10.0); %Neutrophils 46.6 % (42.0-75.0); Hemoglobin 12.4 g/dL (12.0-16.0); Mean Corpuscular HGB CONC 32.1 g/dL (32.0-36.0); Mean Corpuscular Hemoglobin 30.4 pg (27.0-31.0); Mean Corpuscular Volume 94.9 fL (78.0-98.0); Mean Platelet Volume 8.8 fL (7.4-10.4); Platelet Count 119 thou/uL (130-400); Red Blood Cell (RBC) Count 4.07 mill/uL (4.20-5.40); White Blood Cell (WBC) Count 4.7 thou/uL (4.8-10.8)
[2021-01-07 07:23] LABS: CRP (Inflammatory) 1.48 mg/dL (= or < 0.5)
[2021-01-07 07:28] LABS: ALT (SGPT) 23 U/L (8-55); AST (SGOT) 47 U/L (5-34); Albumin 3.2 g/dL (3.4-4.8); Alkaline Phosphatase 76 U/L (40-110); Anion Gap 15 mmol/L (10-20); BUN (Urea Nitrogen) 23 mg/dL (9.8-20.1); Bilirubin, Total 0.3 mg/dL (0.2-1.2); Calc. Creatinine Clearance 35 mL/min (70-130); Calcium 7.7 mg/dL (7.8-10.44); Carbon Dioxide 18 mmol/L (23-31); Chloride 107 mmol/L (98-107); Globulin 3.1 g/dL (2.4-3.5); Glucose 99 mg/dL (83-110); Potassium 4.1 mmol/L (3.5-5.1); Protein, Total 6.3 g/dL (5.8-8.1); Sodium 136 mmol/L (136-145)
[2021-01-07] MEDS ORDERED: Famotidine 20 MG TAB ONE (08:11)
[2021-01-07] MEDS ORDERED: Apixaban 5 MG TAB PO SCH (09:00)
[2021-01-07] MEDS ORDERED: Famotidine 20 MG TAB PO SCH (09:00)
[2021-01-07] MEDS: Apixaban 2.5 MG TAB PO SCH ×2 (09:06→19:54)
[2021-01-07] MEDS: Ascorbic Acid 500 mg Chewable Tablet PO SCH (09:06)
[2021-01-07] MEDS: Zinc Sulfate 220 MG CAP PO SCH (09:06)
[2021-01-07] MEDS: Cholecalciferol 1,000 UNITS (25 MCG) TAB PO SCH (09:06)
[2021-01-07 16:06] VITALS: BMI 24.3
[2021-01-07] MEDS: Metoprolol Tartrate 100 MG TAB PO SCH (16:51)
[2021-01-07] MEDS: Atorvastatin Calcium 20 MG TAB PO SCH (19:53)
[2021-01-08] MEDS: Ondansetron PF 4 MG/2 ML Vial IVP PRN (01:51)
[2021-01-08] MEDS: Acetaminophen 325 MG TAB PO PRN (01:51)
[2021-01-08 05:51] LABS: #Lymphocytes 1.1 thou/uL (1.20-3.40); #Monocytes 0.3 thou/uL (0.11-0.59); #Neutrophils 2.9 thou/uL (1.40-6.50); %Basophils 0.5 % (0.0-1.0); %Eosinophils 0.1 % (0.0-10.0); %Lymphocytes 24.8 % (21.0-51.0); %Monocytes 7.4 % (0.0-10.0); %Neutrophils 67.2 % (42.0-75.0); Hemoglobin 13.4 g/dL (12.0-16.0); Mean Corpuscular HGB CONC 32.2 g/dL (32.0-36.0); Mean Corpuscular Hemoglobin 30.2 pg (27.0-31.0); Mean Corpuscular Volume 93.8 fL (78.0-98.0); Mean Platelet Volume 8.9 fL (7.4-10.4); Platelet Count 111 thou/uL (130-400); Red Blood Cell (RBC) Count 4.44 mill/uL (4.20-5.40); White Blood Cell (WBC) Count 4.4 thou/uL (4.8-10.8)
[2021-01-08 05:53] LABS: CRP (Inflammatory) 2.63 mg/dL (= or < 0.5); Magnesium 1.4 mg/dL (1.6-2.6)
[2021-01-08 05:55] LABS: AST (SGOT) 31 U/L (5-34); Albumin 2.9 g/dL (3.4-4.8); Anion Gap 12 mmol/L (10-20); BUN (Urea Nitrogen) 17 mg/dL (9.8-20.1); Bilirubin, Total 0.5 mg/dL (0.2-1.2); Calc. Creatinine Clearance 51 mL/min (70-130); Calcium 7.5 mg/dL (7.8-10.44); Carbon Dioxide 18 mmol/L (23-31); Chloride 112 mmol/L (98-107); Globulin 2.4 g/dL (2.4-3.5); Glucose 181 mg/dL (83-110); Potassium 3.4 mmol/L (3.5-5.1); Protein, Total 5.3 g/dL (5.8-8.1); Sodium 139 mmol/L (136-145)
[2021-01-08 06:00] LABS: ALT (SGPT) 18 U/L (8-55); Alkaline Phosphatase 67 U/L (40-110)
[2021-01-08] MEDS ORDERED: Magnesium Sulfate 4 GM in Sodium Chloride 0.9% 250 ML 250 ML IVPB SCH (08:00)
[2021-01-08] MEDS ORDERED: Potassium Chloride 20 MEQ TAB PO SCH (08:00)
[2021-01-08] MEDS: Ascorbic Acid 500 mg Chewable Tablet PO SCH (08:35)
[2021-01-08] MEDS: Zinc Sulfate 220 MG CAP PO SCH (08:35)
[2021-01-08] MEDS: Cholecalciferol 1,000 UNITS (25 MCG) TAB PO SCH (08:35)
[2021-01-08] MEDS: Metoprolol Tartrate 100 MG TAB PO SCH ×2 (08:35→20:14)
[2021-01-08] MEDS: Apixaban 2.5 MG TAB PO SCH ×2 (08:35→20:14)
[2021-01-08] MEDS: Famotidine 20 MG TAB PO SCH (08:36)
[2021-01-08] MEDS: Sodium Chloride 0.9% 1,000 ML IV SCH ×2 (13:24→23:32)
[2021-01-08] MEDS: HumaLOG 300 UNITS/3 ML VIAL SC PRN (17:48)
[2021-01-08] MEDS: Atorvastatin Calcium 20 MG TAB PO SCH (20:14)
[2021-01-09 05:24] LABS: #Lymphocytes 1.2 thou/uL (1.20-3.40); #Monocytes 0.3 thou/uL (0.11-0.59); #Neutrophils 3.6 thou/uL (1.40-6.50); %Basophils 0.3 % (0.0-1.0); %Eosinophils 0.1 % (0.0-10.0); %Lymphocytes 23.5 % (21.0-51.0); %Monocytes 6.1 % (0.0-10.0); %Neutrophils 70.1 % (42.0-75.0); Hemoglobin 12.8 g/dL (12.0-16.0); Mean Corpuscular HGB CONC 33.1 g/dL (32.0-36.0); Mean Corpuscular Hemoglobin 31.6 pg (27.0-31.0); Mean Corpuscular Volume 95.5 fL (78.0-98.0); Mean Platelet Volume 8.5 fL (7.4-10.4); Platelet Count 118 thou/uL (130-400); RBC Distribution Width 12.1 % (11.5-14.5); Red Blood Cell (RBC) Count 4.05 mill/uL (4.20-5.40); White Blood Cell (WBC) Count 5.2 thou/uL (4.8-10.8)
[2021-01-09 05:30] LABS: CRP (Inflammatory) 2.88 mg/dL (= or < 0.5); Magnesium 1.7 mg/dL (1.6-2.6)
[2021-01-09 05:32] LABS: ALT (SGPT) 29 U/L (8-55); AST (SGOT) 46 U/L (5-34); Alkaline Phosphatase 62 U/L (40-110); Anion Gap 13 mmol/L (10-20); BUN (Urea Nitrogen) 14 mg/dL (9.8-20.1); Bilirubin, Total 0.5 mg/dL (0.2-1.2); Calc. Creatinine Clearance 53 mL/min (70-130); Calcium 7.5 mg/dL (7.8-10.44); Carbon Dioxide 17 mmol/L (23-31); Chloride 113 mmol/L (98-107); Globulin 2.4 g/dL (2.4-3.5); Glucose 122 mg/dL (83-110); Potassium 3.6 mmol/L (3.5-5.1); Protein, Total 5.4 g/dL (5.8-8.1); Sodium 139 mmol/L (136-145)
[2021-01-09] MEDS: Sodium Chloride 0.9% 1,000 ML IV SCH (06:29)
[2021-01-09] MEDS: Acetaminophen 325 MG TAB PO PRN (08:42)
[2021-01-09] MEDS: Famotidine 20 MG TAB PO SCH (08:43)
[2021-01-09] MEDS: Apixaban 2.5 MG TAB PO SCH ×2 (08:43→22:20)
[2021-01-09] MEDS: Cholecalciferol 1,000 UNITS (25 MCG) TAB PO SCH (08:43)
[2021-01-09] MEDS: Zinc Sulfate 220 MG CAP PO SCH (08:43)
[2021-01-09] MEDS: Ascorbic Acid 500 mg Chewable Tablet PO SCH (08:43)
[2021-01-09] MEDS: Metoprolol Tartrate 100 MG TAB PO SCH ×2 (08:44→22:20)
[2021-01-09] MEDS ORDERED: REMDESIVIR 200 MG in Sodium Chloride 0.9% 250 ML 210 ML IV SCH (13:15)
[2021-01-09] MEDS: Albuterol 200 PUFF (6.7GM INHALER) INH SCH ×2 (13:55→22:20)
[2021-01-09] MEDS: Ondansetron PF 4 MG/2 ML Vial IVP PRN (22:17)
[2021-01-09] MEDS: Atorvastatin Calcium 20 MG TAB PO SCH (22:19)
[2021-01-10] MEDS: Albuterol 200 PUFF (6.7GM INHALER) INH SCH ×4 (04:26→18:00)
[2021-01-10 05:37] LABS: #Lymphocytes 1.3 thou/uL (1.20-3.40); #Monocytes 0.3 thou/uL (0.11-0.59); %Eosinophils 0.1 % (0.0-10.0); %Lymphocytes 19.7 % (21.0-51.0); %Monocytes 4.5 % (0.0-10.0); %Neutrophils 75.6 % (42.0-75.0); Hemoglobin 11.9 g/dL (12.0-16.0); Mean Corpuscular HGB CONC 32.7 g/dL (32.0-36.0); Mean Corpuscular Volume 95.1 fL (78.0-98.0); Mean Platelet Volume 8.9 fL (7.4-10.4); Platelet Count 129 thou/uL (130-400); RBC Distribution Width 12.2 % (11.5-14.5); Red Blood Cell (RBC) Count 3.82 mill/uL (4.20-5.40); White Blood Cell (WBC) Count 6.5 thou/uL (4.8-10.8)
[2021-01-10 05:52] LABS: CRP (Inflammatory) 8.84 mg/dL (= or < 0.5); Magnesium 1.2 mg/dL (1.6-2.6)
[2021-01-10 05:54] LABS: ALT (SGPT) 26 U/L (8-55); AST (SGOT) 44 U/L (5-34); Albumin 2.8 g/dL (3.4-4.8); Alkaline Phosphatase 50 U/L (40-110); Anion Gap 11 mmol/L (10-20); BUN (Urea Nitrogen) 9 mg/dL (9.8-20.1); Bilirubin, Total 0.6 mg/dL (0.2-1.2); Calc. Creatinine Clearance 64 mL/min (70-130); Calcium 7.3 mg/dL (7.8-10.44); Carbon Dioxide 21 mmol/L (23-31); Chloride 110 mmol/L (98-107); Globulin 2.4 g/dL (2.4-3.5); Glucose 125 mg/dL (83-110); Protein, Total 5.2 g/dL (5.8-8.1); Sodium 139 mmol/L (136-145)
[2021-01-10 06:01] LABS: Potassium 2.9 mmol/L (3.5-5.1)
[2021-01-10] MEDS ORDERED: Electrolyte Replacement Protocol 1 EACH FS PRN (06:47)
[2021-01-10] MEDS ORDERED: Magnesium Sulfate 4 GM in Sodium Chloride 0.9% 250 ML 250 ML IVPB SCH (07:00)
[2021-01-10] MEDS ORDERED: Potassium Chloride 40 MEQ in Sodium Chloride 0.9% 250 ML 250 ML IVPB SCH (07:00)
[2021-01-10] MEDS: Ascorbic Acid 500 mg Chewable Tablet PO SCH (08:54)
[2021-01-10] MEDS: Famotidine 20 MG TAB PO SCH (08:54)
[2021-01-10] MEDS: Apixaban 2.5 MG TAB PO SCH ×2 (08:54→20:28)
[2021-01-10] MEDS: Metoprolol Tartrate 100 MG TAB PO SCH ×2 (08:55→20:23)
[2021-01-10] MEDS: Cholecalciferol 1,000 UNITS (25 MCG) TAB PO SCH (08:55)
[2021-01-10] MEDS: Zinc Sulfate 220 MG CAP PO SCH (08:57)
[2021-01-10] MEDS ORDERED: Dexamethasone 10 MG in Sodium Chloride 0.9% 50 ML IVPB SCH (09:00)
[2021-01-10] MEDS ORDERED: Dexamethasone 4 mg/ml Vial SLOW IVP SCH (09:00)
[2021-01-10] MEDS: Potassium Chloride 20 MEQ TAB PO SCH ×3 (09:05→20:22)
[2021-01-10] MEDS ORDERED: REMDESIVIR 100 MG in Sodium Chloride 0.9% 250 ML 230 ML IV SCH (13:15)
[2021-01-10 18:33] LABS: Potassium 4.1 mmol/L (3.5-5.1)
[2021-01-10] MEDS: Dexamethasone 4 mg/ml Vial SLOW IVP SCH (20:23)
[2021-01-10] MEDS: Atorvastatin Calcium 20 MG TAB PO SCH (20:23)
[2021-01-10] MEDS: HumaLOG 300 UNITS/3 ML VIAL SC PRN (21:55)
[2021-01-11] MEDS: Potassium Chloride 20 MEQ TAB PO SCH ×2 (00:48→08:04)
[2021-01-11] MEDS: Albuterol 200 PUFF (6.7GM INHALER) INH SCH ×4 (00:50→17:12)
[2021-01-11 05:59] LABS: Magnesium 1.9 mg/dL (1.6-2.6)
[2021-01-11] MEDS ORDERED: Magnesium 2 GM/50 ML 2 GM in Premix Bag 1 BAG IVPB SCH (06:30)
[2021-01-11] MEDS: HumaLOG 300 UNITS/3 ML VIAL SC PRN ×4 (07:10→20:45)
[2021-01-11] MEDS: Apixaban 2.5 MG TAB PO SCH ×2 (08:04→20:53)
[2021-01-11] MEDS: Famotidine 20 MG TAB PO SCH (08:05)
[2021-01-11] MEDS: Dexamethasone 4 mg/ml Vial SLOW IVP SCH ×2 (08:05→20:46)
[2021-01-11] MEDS: Ascorbic Acid 500 mg Chewable Tablet PO SCH (08:05)
[2021-01-11] MEDS: Cholecalciferol 1,000 UNITS (25 MCG) TAB PO SCH (08:05)
[2021-01-11] MEDS: Zinc Sulfate 220 MG CAP PO SCH (08:06)
[2021-01-11] MEDS: Metoprolol Tartrate 100 MG TAB PO SCH ×2 (08:06→20:46)
[2021-01-11] MEDS: Atorvastatin Calcium 20 MG TAB PO SCH (20:46)
[2021-01-12] MEDS: Albuterol 200 PUFF (6.7GM INHALER) INH SCH ×3 (01:25→12:16)
[2021-01-12] MEDS: Acetaminophen 325 MG TAB PO PRN (03:47)
[2021-01-12] MEDS: HumaLOG 300 UNITS/3 ML VIAL SC PRN ×2 (05:59→12:14)
[2021-01-12 06:33] LABS: Magnesium 1.8 mg/dL (1.6-2.6)
[2021-01-12] MEDS ORDERED: Metoprolol Tartrate 5 MG/5 ML VIAL IVP PRN (06:43)
[2021-01-12] MEDS ORDERED: Magnesium 2 GM/50 ML 2 GM in Premix Bag 1 BAG IVPB SCH (07:00)
[2021-01-12] MEDS: Famotidine 20 MG TAB PO SCH (07:10)
[2021-01-12] MEDS: Ascorbic Acid 500 mg Chewable Tablet PO SCH (07:10)
[2021-01-12] MEDS: Cholecalciferol 1,000 UNITS (25 MCG) TAB PO SCH (07:10)
[2021-01-12] MEDS: Metoprolol Tartrate 100 MG TAB PO SCH (07:10)
[2021-01-12] MEDS: Apixaban 2.5 MG TAB PO SCH (07:10)
[2021-01-12] MEDS: Zinc Sulfate 220 MG CAP PO SCH (07:11)
[2021-01-12] MEDS: Dexamethasone 4 mg/ml Vial SLOW IVP SCH (09:51)
[2021-01-12 12:09] LABS: #Monocytes 0.8 thou/uL (0.11-0.59); #Neutrophils 15.7 thou/uL (1.40-6.50); %Basophils 0.1 % (0.0-1.0); %Lymphocytes 5.9 % (21.0-51.0); %Monocytes 4.3 % (0.0-10.0); %Neutrophils 89.7 % (42.0-75.0); Hemoglobin 13.9 g/dL (12.0-16.0); Mean Corpuscular HGB CONC 32.2 g/dL (32.0-36.0); Mean Corpuscular Hemoglobin 30.2 pg (27.0-31.0); Mean Corpuscular Volume 93.6 fL (78.0-98.0); Mean Platelet Volume 9.1 fL (7.4-10.4); Platelet Count 291 thou/uL (130-400); RBC Distribution Width 12.4 % (11.5-14.5); Red Blood Cell (RBC) Count 4.59 mill/uL (4.20-5.40); White Blood Cell (WBC) Count 17.5 thou/uL (4.8-10.8)
[2021-01-12 12:12] LABS: Bacteria/HPF None Seen HPF (None Seen); Bilirubin Negative (Negative); Blood, Urine Negative (Negative); Clarity Clear (Clear); Glucose, Urine (Dipstick) 300 mg/dL (Negative); Ketone, Urine 10 mg/dL (Negative); Leukocyte Negative Leu/uL (Negative); Nitrite Negative (Negative); Protein, Urine (Dipstick) 30 mg/dL (Neg-Trace); RBC/HPF 0-3 HPF (0-3); Specific Gravity, Urine 1.022 (1.002-1.036); Squamous Epithelial 0-3 HPF (0-3); Urobilinogen Normal mg/dL (Less than 2); WBC/HPF 0-3 HPF (0-3); pH, Urine 5.5 (5.0-9.0)
[2021-01-12 12:19] LABS: Urine Culture Reflex No No
[2021-01-12 12:24] LABS: Anion Gap 16 mmol/L (10-20); BUN (Urea Nitrogen) 24 mg/dL (9.8-20.1); Calc. Creatinine Clearance 53 mL/min (70-130); Calcium 8.6 mg/dL (7.8-10.44); Carbon Dioxide 18 mmol/L (23-31); Chloride 110 mmol/L (98-107); Glucose 258 mg/dL (83-110); Potassium 4.5 mmol/L (3.5-5.1); Sodium 139 mmol/L (136-145)
[2021-01-12 16:57] VITALS: BP 156/87; TEMP 98
== END 2021-01-12 17:10 | disposition home health service (06) | DRG 871 ==
LOC: ERS 19:14 → ERHOLD 22:31 → 2SE 01-07 15:40
PROVIDERS: ADMIT Internal Medicine; ATTEND Internal Medicine
PROC: 8E0ZXY6 Isolation (ICD-10-PCS; principal; 2021-01-06)
PROC: 3E0333Z Introduction of Anti-inflammatory into Peripheral Vein, Percutaneous Approach (ICD-10-PCS; 2021-01-10)
DX: A41.89 Other specified sepsis (principal); U07.1 COVID-19; J12.82 Pneumonia due to coronavirus disease 2019; G93.41 Metabolic encephalopathy; J96.01 Acute respiratory failure with hypoxia; I48.20 Chronic atrial fibrillation, unspecified; N17.9 Acute kidney failure, unspecified; E44.0 Moderate protein-calorie malnutrition; I10 Essential (primary) hypertension; E11.9 Type 2 diabetes mellitus without complications; E78.5 Hyperlipidemia, unspecified; E78.2 Mixed hyperlipidemia; G43.909 Migraine, unspecified, not intractable, without status migrainosus; D69.6 Thrombocytopenia, unspecified; E86.0 Dehydration; E87.6 Hypokalemia; E83.42 Hypomagnesemia; Z91.012 Allergy to eggs; Z79.899 Other long term (current) drug therapy; Z79.84 Long term (current) use of oral hypoglycemic drugs; Z79.01 Long term (current) use of anticoagulants; Z68.24 Body mass index [BMI] 24.0-24.9, adult
CPT/HCPCS: 36415; 36416; 70450; 71045; 74176; 80048; 80053; 81001; 81003; 81015; 82728; 83605; 83690; 83735; 85025; 86140; 87040; 87086; 87324; 87449; 93005; 93010; J0696; J1100; J1815; J2405; J3475; J7050; U0002